=== PATIENT | female | born 1945 | race Caucasian/White ===

== ENCOUNTER 2016-10-28 19:04 | Inpatient (IN) | payer BC, MEDICARE ==
[2016-10-28] MEDS ORDERED: VITAMIN D31000 UNI3 PO (19:27)
[2016-10-28] MEDS ORDERED: AMIODARONE HCL200 M1 PO (19:27)
[2016-10-28] MEDS ORDERED: ATIVAN0.5 M1 PO (19:27)
[2016-10-28] MEDS ORDERED: PRINIVIL5 M1 PO (19:27)
[2016-10-28] MEDS ORDERED: COREG6.25 M1 PO (19:27)
[2016-10-28] MEDS ORDERED: CRESTOR10 M1 (19:28)
[2016-10-28] MEDS ORDERED: VITAMIN E400 UNI4 PO (19:28)
[2016-10-28] MEDS ORDERED: POTASSIUM CHLO20 ME3 PO (19:28)
[2016-10-28] MEDS ORDERED: COUMADIN1 M1 PO (19:29)
[2016-10-28 19:38] LABS: BASO % 0.5 % (0-2); EOS % 0.3 % (0-7); HCT-HEMATOCRIT 38.6 % (34.0-49.0); HGB-HEMOGLOBIN 11.6 gm/dl (12.0-15.5); IMMATURE GRANULOCYTES ABSOLUTE 0.02 tho/cmm (0-0.03); IMMATURE GRANULOCYTES PERCENT 0.3 % (0-0.3); LYMPH % 23.4 % (20-45); LYMPH ABSOLUTE COUNT 1.7 tho/cmm (0.8-4.5); MCH (MEAN CORPUSCULAR HGB) 24.8 pg (28.0-32.0); MCHC MEAN CORPUSCULAR HGB CONC 30.1 % (32.0-36.0); MCV (MEAN CELL VOLUME) 82.7 fl (82.0-96.0); MEAN PLATELET VOLUME 10.7 cmc (9.4-12.4); MONO % 11.2 % (0-12); MONOCYTE ABSOLUTE COUNT 0.8 tho/cmm (0.0-1.2); NEUTROPHIL ABSOLUTE COUNT 4.7 tho/cmm (1.6-8.0); NEUTROPHIL-AUTOMATED 4.7 tho/cmm (1.6-8.0); NEUTROPHILS % 64.3 % (40-80); PLATELET COUNT 344 tho/cmm (150-450); RED BLOOD COUNT 4.67 mil/cmm (4.00-5.20); RED CELL DISTRIBUTION WIDTH 19.4 % (12.4-16.4); WHITE BLOOD COUNT 7.3 tho/cmm (4.0-10.0)
[2016-10-28 19:46] LABS: INR 2.6 INR (0.9-1.1); PROTHROMBIN TIME 31.4 SECONDS (9.0-13.6)
[2016-10-28 19:56] LABS: ALB/GLOB RATIO 1.6 (0.8-2.0); ALKALINE PHOSPHATASE 82 U/L (33-138); ALT/SGPT 44 U/L (12-78); ANION GAP 17 mmol/L (0-20); AST/SGOT 36 U/L (10-40); BILIRUBIN,TOTAL 2.1 mg/dl (0-1.5); BLOOD UREA NITROGEN 39 mg/dl (6-24); CALCIUM 9.6 mg/dl (8.5-10.5); CARBON DIOXIDE-VENOUS 17 mmol/L (22-32); CHLORIDE 112 mmol/l (96-110); CREATININE 1.84 mg/dl (0.50-1.10); GLUCOSE 87 mg/dL (70-110); MAGNESIUM 2.2 mg/dl (1.3-2.6); POTASSIUM 5.2 mmol/L (3.7-5.1); SODIUM 141 mmol/L (135-145); T4 (THYROXINE) 13.7 ug/dl (5.0-12.6); eGFR VALUE FOR BLACK 31 mL/Min
[2016-10-28 20:24] LABS: PROCALCITONIN <0.05 ng/ml (0.05-0.09)
[2016-10-29 05:23] LABS: INR 3.5 INR (0.9-1.1); PROTHROMBIN TIME 42.8 SECONDS (9.0-13.6)
[2016-10-29 05:30] LABS: ANION GAP 17 mmol/L (0-20); BLOOD UREA NITROGEN 40 mg/dl (6-24); CALCIUM 9.2 mg/dl (8.5-10.5); CARBON DIOXIDE-VENOUS 18 mmol/L (22-32); CHLORIDE 112 mmol/l (96-110); CREATININE 1.85 mg/dl (0.50-1.10); GLUCOSE 100 mg/dL (70-110); POTASSIUM 4.8 mmol/L (3.7-5.1); SODIUM 142 mmol/L (135-145); eGFR VALUE FOR BLACK 31 mL/Min
[2016-10-29 07:43] LABS: URINE BILIRUBIN NEGATIVE (NEG); URINE BLOOD NEGATIVE (NEG); URINE GLUCOSE (UA) NEGATIVE (NEG); URINE KETONE NEGATIVE (NEG); URINE LEUKOCYTE ESTERASE POSITIVE (NEG); URINE NITRITE NEGATIVE (NEG); URINE PROTEIN NEGATIVE (NEG)
[2016-10-29 07:59] LABS: URINE APPEARANCE CLEAR; URINE COLOR PALE YELLOW
[2016-10-29 08:09] LABS: URINE RBC 0-2 /[HPF] (0-5)
[2016-10-30 05:59] LABS: INR 3.3 INR (0.9-1.1); PROTHROMBIN TIME 39.8 SECONDS (9.0-13.6)
[2016-10-30 06:03] LABS: BASO % 0.4 % (0-2); EOS % 3.2 % (0-7); EOSINOPHIL ABSOLUTE COUNT 0.2 tho/cmm (0.0-0.7); HCT-HEMATOCRIT 33.5 % (34.0-49.0); HGB-HEMOGLOBIN 10.1 gm/dl (12.0-15.5); IMMATURE GRANULOCYTES ABSOLUTE 0.01 tho/cmm (0-0.03); IMMATURE GRANULOCYTES PERCENT 0.2 % (0-0.3); LYMPH % 26.4 % (20-45); LYMPH ABSOLUTE COUNT 1.4 tho/cmm (0.8-4.5); MCHC MEAN CORPUSCULAR HGB CONC 30.1 % (32.0-36.0); MCV (MEAN CELL VOLUME) 82.9 fl (82.0-96.0); MEAN PLATELET VOLUME 11.3 cmc (9.4-12.4); MONOCYTE ABSOLUTE COUNT 0.6 tho/cmm (0.0-1.2); NEUTROPHILS % 57.8 % (40-80); PLATELET COUNT 213 tho/cmm (150-450); RED BLOOD COUNT 4.04 mil/cmm (4.00-5.20); RED CELL DISTRIBUTION WIDTH 19.4 % (12.4-16.4); WHITE BLOOD COUNT 5.3 tho/cmm (4.0-10.0)
[2016-10-30 06:17] LABS: CHLORIDE 111 mmol/l (96-110); POTASSIUM 4.1 mmol/L (3.7-5.1); SODIUM 143 mmol/L (135-145)
[2016-10-30 06:24] LABS: ALB/GLOB RATIO 1.5 (0.8-2.0); ALBUMIN 3.3 g/dl (3.5-5.0); ALKALINE PHOSPHATASE 68 U/L (33-138); ALT/SGPT 44 U/L (12-78); ANION GAP 14 mmol/L (0-20); AST/SGOT 43 U/L (10-40); BILIRUBIN,TOTAL 1.7 mg/dl (0-1.5); BLOOD UREA NITROGEN 44 mg/dl (6-24); CALCIUM 8.9 mg/dl (8.5-10.5); CARBON DIOXIDE-VENOUS 22 mmol/L (22-32); CREATININE 1.99 mg/dl (0.50-1.10); eGFR VALUE FOR BLACK 28 mL/Min
[2016-10-30 06:35] LABS: GLUCOSE 70 mg/dL (70-110)
[2016-10-31 05:32] LABS: BASO % 0.4 % (0-2); EOS % 3.5 % (0-7); EOSINOPHIL ABSOLUTE COUNT 0.2 tho/cmm (0.0-0.7); HCT-HEMATOCRIT 32.8 % (34.0-49.0); IMMATURE GRANULOCYTES ABSOLUTE 0.02 tho/cmm (0-0.03); IMMATURE GRANULOCYTES PERCENT 0.4 % (0-0.3); LYMPH % 23.8 % (20-45); LYMPH ABSOLUTE COUNT 1.2 tho/cmm (0.8-4.5); MCH (MEAN CORPUSCULAR HGB) 25.2 pg (28.0-32.0); MCHC MEAN CORPUSCULAR HGB CONC 30.5 % (32.0-36.0); MCV (MEAN CELL VOLUME) 82.6 fl (82.0-96.0); MEAN PLATELET VOLUME 10.8 cmc (9.4-12.4); MONO % 15.2 % (0-12); MONOCYTE ABSOLUTE COUNT 0.8 tho/cmm (0.0-1.2); NEUTROPHILS % 56.7 % (40-80); PLATELET COUNT 214 tho/cmm (150-450); RED BLOOD COUNT 3.97 mil/cmm (4.00-5.20); RED CELL DISTRIBUTION WIDTH 19.2 % (12.4-16.4); WHITE BLOOD COUNT 5.2 tho/cmm (4.0-10.0)
[2016-10-31 05:36] LABS: INR 2.2 INR (0.9-1.1); PROTHROMBIN TIME 26.1 SECONDS (9.0-13.6)
[2016-10-31 05:42] LABS: ALB/GLOB RATIO 1.5 (0.8-2.0); ALBUMIN 3.3 g/dl (3.5-5.0); ALKALINE PHOSPHATASE 71 U/L (33-138); ALT/SGPT 45 U/L (12-78); ANION GAP 14 mmol/L (0-20); AST/SGOT 42 U/L (10-40); BILIRUBIN,TOTAL 1.5 mg/dl (0-1.5); BLOOD UREA NITROGEN 42 mg/dl (6-24); CALCIUM 8.9 mg/dl (8.5-10.5); CARBON DIOXIDE-VENOUS 21 mmol/L (22-32); CHLORIDE 110 mmol/l (96-110); CREATININE 1.83 mg/dl (0.50-1.10); GLUCOSE 75 mg/dL (70-110); POTASSIUM 3.4 mmol/L (3.7-5.1); SODIUM 142 mmol/L (135-145); eGFR VALUE FOR BLACK 31 mL/Min
[2016-11-01 05:21] LABS: INR 1.5 INR (0.9-1.1); PROTHROMBIN TIME 17.6 SECONDS (9.0-13.6)
[2016-11-02 05:21] LABS: INR 1.6 INR (0.9-1.1); PROTHROMBIN TIME 19.4 SECONDS (9.0-13.6)
[2016-11-02 05:35] LABS: ANION GAP 13 mmol/L (0-20); BLOOD UREA NITROGEN 38 mg/dl (6-24); CALCIUM 8.8 mg/dl (8.5-10.5); CARBON DIOXIDE-VENOUS 23 mmol/L (22-32); CHLORIDE 109 mmol/l (96-110); CREATININE 1.71 mg/dl (0.50-1.10); GLUCOSE 93 mg/dL (70-110); POTASSIUM 3.8 mmol/L (3.7-5.1); SODIUM 141 mmol/L (135-145); eGFR VALUE FOR BLACK 34 mL/Min
[2016-11-03 05:13] LABS: INR 1.6 INR (0.9-1.1); PROTHROMBIN TIME 19.4 SECONDS (9.0-13.6)
[2016-11-03 05:17] LABS: BLOOD UREA NITROGEN 35 mg/dl (6-24); CREATININE 1.61 mg/dl (0.50-1.10); eGFR VALUE FOR BLACK 36 mL/Min
[2016-11-04 06:08] LABS: INR 1.9 INR (0.9-1.1); PROTHROMBIN TIME 21.9 SECONDS (9.0-13.6)
[2016-11-05 04:52] LABS: INR 1.6 INR (0.9-1.1); PROTHROMBIN TIME 18.9 SECONDS (9.0-13.6)
[2016-11-06 04:44] LABS: INR 1.5 INR (0.9-1.1); PROTHROMBIN TIME 17.5 SECONDS (9.0-13.6)
[2016-11-06 12:48] LABS: BASO % 0.4 % (0-2); EOS % 2.5 % (0-7); EOSINOPHIL ABSOLUTE COUNT 0.1 tho/cmm (0.0-0.7); HCT-HEMATOCRIT 33.3 % (34.0-49.0); IMMATURE GRANULOCYTES ABSOLUTE 0.01 tho/cmm (0-0.03); IMMATURE GRANULOCYTES PERCENT 0.2 % (0-0.3); LYMPH % 17.2 % (20-45); LYMPH ABSOLUTE COUNT 0.8 tho/cmm (0.8-4.5); MCH (MEAN CORPUSCULAR HGB) 24.6 pg (28.0-32.0); MCV (MEAN CELL VOLUME) 81.8 fl (82.0-96.0); MEAN PLATELET VOLUME 10.2 cmc (9.4-12.4); MONOCYTE ABSOLUTE COUNT 0.6 tho/cmm (0.0-1.2); NEUTROPHIL ABSOLUTE COUNT 3.2 tho/cmm (1.6-8.0); NEUTROPHIL-AUTOMATED 3.2 tho/cmm (1.6-8.0); NEUTROPHILS % 66.7 % (40-80); PLATELET COUNT 237 tho/cmm (150-450); RED BLOOD COUNT 4.07 mil/cmm (4.00-5.20); RED CELL DISTRIBUTION WIDTH 18.9 % (12.4-16.4); WHITE BLOOD COUNT 4.8 tho/cmm (4.0-10.0)
[2016-11-06 13:00] LABS: ANION GAP 13 mmol/L (0-20); BLOOD UREA NITROGEN 29 mg/dl (6-24); CALCIUM 8.6 mg/dl (8.5-10.5); CARBON DIOXIDE-VENOUS 24 mmol/L (22-32); CHLORIDE 110 mmol/l (96-110); CREATININE 1.39 mg/dl (0.50-1.10); GLUCOSE 91 mg/dL (70-110); POTASSIUM 3.6 mmol/L (3.7-5.1); SODIUM 143 mmol/L (135-145); eGFR VALUE FOR BLACK 43 mL/Min
[2016-11-07 05:06] LABS: INR 1.3 INR (0.9-1.1); PROTHROMBIN TIME 15.8 SECONDS (9.0-13.6)
[2016-11-08 06:37] LABS: INR 1.3 INR (0.9-1.1)
[2016-11-08] MEDS ORDERED: COUMADIN2 M1 PO (13:43)
[2016-11-08] MEDS ORDERED: LANOXIN125 MC3 PO (13:43)
[2016-11-08] MEDS ORDERED: HYDRALAZINE HCL25 M1 PO (13:43)
[2016-11-08] MEDS ORDERED: METOPROLOL SUCC25 M1 PO (13:44)
[2016-11-08] MEDS ORDERED: ASPIRIN81 M1 PO (13:44)
[2016-11-08] MEDS ORDERED: LOVENOX100 MG/1 M SC (13:56)
== END 2016-11-08 16:00 | DRG 286 ==
LOC: EDMED 19:04 → EMR2 22:21 → PCUB 22:31
PROVIDERS: Family Medicine; Hospitalist; Internal Medicine Cardiovascular Disease; ADMIT Internal Medicine
PROC: 5A09357 Assistance with Respiratory Ventilation, Less than 24 Consecutive Hours, Continuous Positive Airway Pressure (ICD-10-PCS; 2016-10-29)
PROC: 4A023N7 Measurement of Cardiac Sampling and Pressure, Left Heart, Percutaneous Approach (ICD-10-PCS; principal; 2016-11-02)
PROC: B2111ZZ Fluoroscopy of Multiple Coronary Arteries using Low Osmolar Contrast (ICD-10-PCS; 2016-11-02)
DX: I48.0 Paroxysmal atrial fibrillation (principal); I50.43 Acute on chronic combined systolic (congestive) and diastolic (congestive) heart failure; I95.9 Hypotension, unspecified; N18.4 Chronic kidney disease, stage 4 (severe); I27.2 Other secondary pulmonary hypertension; E87.5 Hyperkalemia; N17.9 Acute kidney failure, unspecified; I13.0 Hypertensive heart and chronic kidney disease with heart failure and stage 1 through stage 4 chronic kidney disease, or unspecified chronic kidney disease; E05.80 Other thyrotoxicosis without thyrotoxic crisis or storm; I44.7 Left bundle-branch block, unspecified; E78.5 Hyperlipidemia, unspecified; Z79.01 Long term (current) use of anticoagulants; I34.0 Nonrheumatic mitral (valve) insufficiency; I25.10 Atherosclerotic heart disease of native coronary artery without angina pectoris; T46.2X5A Adverse effect of other antidysrhythmic drugs, initial encounter; J40 Bronchitis, not specified as acute or chronic; I25.5 Ischemic cardiomyopathy
CPT/HCPCS: J0282; J1160; J1200; J1250; J1644; J1720; J1940; J2250; J2405; J3010; J3480; J7030; J7050; Q9967